=== PATIENT | female | born 1995 | race African-American/Black ===

== ENCOUNTER 2020-03-22 15:30 | Emergency (ER) | payer SELFPAY ==
[2020-03-22 15:44] VITALS: BP 132/73; PULSE 79; RESP 16; TEMP 36.7; O2SAT 99
--- NOTE | 2020-03-22 15:44 | ED.GENADULT ---
HPI - General Adult General Chief complaint: Unspecified Stated complaint: pos discharge Time Seen by Provider: 03/22/20 15:45 Source: patient and RN notes reviewed Mode of arrival: ambulatory Limitations: no limitations History of Present Illness HPI narrative: This is a 24 years old female presented office for evaluation of vaginal discharge. Stated she had a bikini wax yesterday and developed symptoms the following night. Symptoms include foul white thick odor discharge, with vaginal irritation/slight itchy/pain when she pees or shower.Admits to history of yeast infection. Denies vaginal pain if she does not touch her private part. She does not douche. Denies concerns for STD. She is otherwise feeling well. Related Data Allergies Allergy/AdvReac Type Severity Reaction Status Date / Time No Known Allergies Allergy Verified 03/22/20 15:37 Review of Systems Review of Systems: Narrative: CONSTITUTIONAL: Denies fever or feeling ill. ENT: Denies congestion, sore throat CARDIOVASCULAR: Denies chest pain RESPIRATORY: Denies dyspnea GASTROINTESTINAL: Denies abdominal pain, nausea, vomiting GENITOURINARY: Denies urinary symptoms. SKIN: Denies rash MUSCULOSKELETAL: Denies acute back pain NEUROLOGIC: Denies lightheaded PMFSH Comments At time of signature, I agree with nursing past medical, surgical, social and family history. There is no relevant family history pertinent to the presenting complaint. Exam Narrative: Exam Narrative: GENERAL: This is a well-nourished, well-developed patient, in no apparent distress. CARDIOVASCULAR: Regular rate and rhythm without murmurs, gallops, or rubs. RESPIRATORY: Clear to auscultation. Breath sounds equal bilaterally. No wheezes, rales, or rhonchi. GASTROINTESTINAL: Abdomen soft, non-tender, nondistended. Bowel sounds are active. No guarding. : external vaginal appears normal without obvious lesion, erythema or edematou/tenderness to palpation. Exam substation supervisor by nurse Gilmore. NEURO: awake, alert, and oriented to person, place and time. There were no obvious focal neurologic abnormalities. Steady gait [place] Coma Scale Eye Opening: Spontaneous 4 [place] Coma Scale Motor: Obeys Commands 6 [place] Coma Scale Verbal: Oriented 5 Course Vital Signs Vital signs: Vital Signs Temperature 98.0 F 03/22/20 15:44 Pulse Rate 79 03/22/20 15:44 Respiratory Rate 16 03/22/20 15:44 Blood Pressure 132/73 03/22/20 15:44 Pulse Oximetry 99 03/22/20 15:44 Temperature 98.0 F 03/22/20 15:44 Pulse Rate 79 03/22/20 15:44 Respiratory Rate 16 03/22/20 15:44 Blood Pressure 132/73 03/22/20 15:44 Pulse Oximetry 99 03/22/20 15:44 Medical Decision Making MDM Narrative Medical decision making narrative: Discharge instructions reviewed with patient, as well as provided in writing per nursing staff. The instructions also include specific and strict return/GO TO THE ER as well as f/u information. All questions have been answered, and the patient deny any further questions with discharge and discharge plan. Differential Diagnosis Differential Diagnosis: bacterial vaginosis, candidiasis, vaginitis, STD, syphilis, herpes Vital Signs Vital Signs: Vital Signs Temperature 98.0 F 03/22/20 15:44 Pulse Rate 79 03/22/20 15:44 Respiratory Rate 16 03/22/20 15:44 Blood Pressure 132/73 03/22/20 15:44 Pulse Oximetry 99 03/22/20 15:44 Temperature 98.0 F 03/22/20 15:44 Pulse Rate 79 03/22/20 15:44 Respiratory Rate 16 03/22/20 15:44 Blood Pressure 132/73 03/22/20 15:44 Pulse Oximetry 99 03/22/20 15:44 Critical Care Time Critical Care Time Critical Care Time: No Discharge Plan Discharge Clinical Impression: Vaginal discharge Vaginitis Qualifiers: Chronicity: acute Qualified Code(s): N76.0 - Acute vaginitis Patient Disposition: Home, Self-Care Condition: Stable Instructions: Yeast Infection (ED) Additional Instruction
== END 2020-03-22 16:01 | disposition home or self-care (01) ==
PROVIDERS: Emergency Provider Nurse Practitioner
DX: N76.0 Acute vaginitis (principal)
CPT/HCPCS: 99203; G0463

== ENCOUNTER 2020-07-16 16:31 | Emergency (ER) | payer BC, SELFPAY ==
--- NOTE | 2020-07-16 16:40 | ED.GENADULT ---
HPI - General Adult General Chief complaint: Urogenital-Female Stated complaint: Std testing Time Seen by Provider: 07/16/20 16:40 Source: patient Mode of arrival: ambulatory Limitations: no limitations History of Present Illness HPI narrative: 25-year-old female patient [facility] with complaints of vaginal discharge for the past 2 days. Patient states last menstrual. Was in early May. Patient states that she is sexually active with one partner but does not always use protection. Patient states that the vaginal discharge has had an odor to it but denies any itching to the area. Denies any pain with urination, low back pain, fever, body aches or chills. Related Data Allergies Allergy/AdvReac Type Severity Reaction Status Date / Time No Known Allergies Allergy Verified 03/22/20 15:37 Review of Systems Review of Systems: Narrative: CONSTITUTIONAL: Denies fever, chills, or sweats. EYES: Denies visual changes, redness, or discharge. ENT: Denies rhinorrhea, congestion, sore throat, or otalgia. CARDIOVASCULAR: Denies chest pain, palpitations, or edema. RESPIRATORY: Denies cough or dyspnea. GASTROINTESTINAL: Denies abdominal pain, nausea, vomiting, or diarrhea. GENITOURINARY: Denies dysuria or hematuria. Positive vaginal discharge SKIN: Denies rash or itching. MUSCULOSKELETAL: Denies back pain, joint pain, or myalgia. NEUROLOGIC: Denies headache, numbness, or weakness. PSYCHIATRIC: Denies anxiety or depression. PMFSH Comments At the time of my signature I agree with nursing past medical history, surgical, social, and family history. There is no relevant family history pertinent to the presenting complaint. Exam Narrative: Exam Narrative: GENERAL: Well-appearing, well-nourished, and in no acute distress. HEAD: Normocephalic, atraumatic. EYES: PERRLA and EOMI. ENT: Nares clear, no rhinorrhea or epistaxis. Mucous membranes moist. NECK: Supple. No lymphadenopathy CHEST: Clear to auscultation. No respiratory distress. HEART: Regular rate and rhythm. No murmur heard. Normal peripheral pulses. ABDOMEN: Soft, nontender, nondistended, normal active bowel sounds. No CVA tenderness on percussion : Normal external female genitalia. OS is closed. No adnexal fullness or TTP. No CVA tenderness to percussion. Patient does have some milky white discharge noted on exam. RS appears normal and closed. EXTREMITIES: Normal range of motion. No edema. SKIN: Warm, dry, no rash. NEURO: No focal deficits. Alert and oriented x3. Course Vital Signs Vital signs: Vital Signs Temperature 36.8 C 07/16/20 16:45 Pulse Rate 96 07/16/20 16:45 Respiratory Rate 16 07/16/20 16:45 Blood Pressure 135/73 07/16/20 16:45 Pulse Oximetry 100 07/16/20 16:45 Temperature 36.8 C 07/16/20 16:45 Pulse Rate 96 07/16/20 16:45 Respiratory Rate 16 07/16/20 16:45 Blood Pressure 135/73 07/16/20 16:45 Pulse Oximetry 100 07/16/20 16:45 Vital signs reviewed. Medical Decision Making Differential Diagnosis Differential Diagnosis: Differential diagnosis: Gonorrhea, chlamydia, Trichomonas, bacterial vaginosis, herpes, HIV, yeast infection, urinary tract infection. Uncomplicated lower UTI, uncomplicated UTI, pyelonephritis Discussed with patient that her test did come back positive. Discussed with her that based on this information I would like to go ahead and test her for gonorrhea, chlamydia and trichomonas as well as go ahead and treat her today for gonorrhea and chlamydia. Patient states that this would make her fourth . Patient has 2 living children at home and has had 1 previous elective . Patient is tearful about the news. Discussed with patient and asked her if she had an CLINICAL CYTOGENETICIST to follow-up with. Patient states that she does. Discussed with her that she will need to follow-up with her CLINICAL CYTOGENETICIST for further evaluation of things such as bacterial vaginosis and other STDs especially if her symptom
[2020-07-16 16:45] VITALS: BP 135/73; PULSE 96; RESP 16; TEMP 36.8; O2SAT 100
[2020-07-16] MEDS: cefTRIAXone 250 MG VIAL IM (17:56)
[2020-07-16] MEDS: AZITHROMYCIN 250 MG TABLET 500 MG PO (17:56)
--- NOTE | 2020-07-16 18:01 | PC.NURSE ---
was given 1000mg azithromycin po vorb unable to scan. initially ordered as 500mg po. 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
--- NOTE | 2020-07-16 18:24 | PC.NURSE ---
gc/chlam swab sent. urine cx sent. trich urine sent.
== END 2020-07-16 18:20 | disposition home or self-care (01) ==
PROVIDERS: Emergency Provider Nurse Practitioner Family
DX: Z20.2 Contact with and (suspected) exposure to infections with a predominantly sexual mode of transmission (principal); Z32.01 Encounter for pregnancy test, result positive; Z3A.01 Less than 8 weeks gestation of pregnancy
CPT/HCPCS: 81003; 81025; 87086; 87491; 87591; 87661; 96372; 99214; A9270; G0463; J0696

== ENCOUNTER 2021-01-20 00:02 | Observation (INO) | payer OTHER, SELFPAY ==
--- NOTE | 2021-01-20 00:02 | OBADM ---
This patient, Jessika Keenan, admitted to the OB room Labor/Delivery/Recovery 106 for observation. Patient/family oriented to hospital policies and general routines including ID bracelet, bed and alarms, visiting hours, pain management, procedures, bathroom and other care routines, personal items, smoking policy, room service/diet, and visiting hours. Patient/Family are encouraged to report perceived risks to care and to ask questions if they do not understand what they are told or what they should do.
[2021-01-20 00:16] VITALS: BP 113/81; PULSE 82; TEMP 36.7
[2021-01-20 00:31] VITALS: BP 125/77; PULSE 84
[2021-01-20 00:46] VITALS: BP 116/63; PULSE 84
[2021-01-20 00:56] VITALS: BMI 43.9
[2021-01-20] MEDS: HYDROcodone/acetaminophen (*CRX) 5-325 MG TABLET 1 TAB PO (00:57)
[2021-01-20] MEDS: FAMOTIDINE 20 MG TABLET PO (00:57)
[2021-01-20 00:59] LABS: Basophils Percent Auto 0.2 % (0.2-1.2); Eosinophils Absolute Auto 0.3 K/mm3 (0-0.3); Eosinophils Percent Auto 2.2 % (0-4.4); Hematocrit 32.9 % (37.0-47.0); Hemoglobin 10.9 g/dL (12.0-15.0); Immature Granulocyte Absolute 0.05 K/mm3 (0.00-0.031); Immature Granulocyte Percent A 0.4 % (0-0.5); Lymphocytes Absolute Auto 1.93 K/mm3 (0.9-3.2); Lymphocytes Percent Auto 15.7 % (18.3-44.2); Mean Corpuscular HGB Conc 33.1 g/dl (32-36); Mean Corpuscular Hemoglobin 29.5 pg (26-34); Mean Corpuscular Volume 88.9 fl (80-100); Mean Platelet Volume 10.5 fl (7.4-10.4); Monocytes Absolute Auto 1.2 K/mm3 (0.1-0.6); Neutrophils Absolute Auto 8.8 K/mm3 (1.3-6.7); Neutrophils Percent Auto 71.5 % (45.5-73.1); Platelet Count Result 212 k/mm3 (150-375); Red Cell Distribution Width 12.9 % (11.5-14.5); White Blood Count 12.3 K/mm3 (4.5-10.0)
[2021-01-20 01:01] VITALS: BP 114/68; PULSE 81
[2021-01-20 01:15] LABS: Alanine Aminotransferase 11 U/L (4-35); Albumin Level 3.9 g/dL (3.5-5.1); Alkaline Phosphatase 89 U/L (38-126); Anion Gap 5 mmol/L (8-16); Aspartate Amino Transferase 21 U/L (14-36); Bilirubin,Total 0.3 mg/dL (0.2-1.3); Blood Urea Nitrogen 9 mg/dL (7-17); Calcium 9.1 mg/dL (8.4-10.2); Carbon Dioxide 25 mmol/L (22-30); Chloride 106 mmol/L (98-107); Estimated CRCL calculation 154 ml/min; Estimated Glomerular Filt Rate > 60; Glucose 99 mg/dL (65-105); Lipase 111 U/L (23-300); Potassium 4.3 mmol/L (3.4-5.0); Sodium 136 mmol/L (137-145)
[2021-01-20 01:16] VITALS: BP 116/65; PULSE 81
[2021-01-20 01:31] VITALS: BP 116/60; PULSE 87
--- NOTE | 2021-02-01 08:54 | PM.OBTRLD ---
OB - Triage/Final Diagnosis Visit Information Comments/Additional reasons for admission: I have assessed the risk for this patient, Jessika Keenan, and determined that she would benefit from observation care. Evaluation Laboratory results: Laboratory Tests 01/20/21 01/20/21 00:50 00:50 WBC 12.3 H RBC 3.70 L Hgb 10.9 L Hct 32.9 L MCV 88.9 MCH 29.5 MCHC 33.1 RDW 12.9 Plt Count 212 MPV 10.5 H Immature Gran % (Auto) 0.4 Neut % (Auto) 71.5 Lymph % (Auto) 15.7 L [place] % (Auto) 10.0 H Eos % (Auto) 2.2 Baso % (Auto) 0.2 Lymph # (Auto) 1.93 [place] # (Auto) 1.2 H Eos # (Auto) 0.3 Baso # (Auto) 0.0 Abs Immat Gran (auto) 0.05 H Absolute Neuts (auto) 8.8 H Absolute Nucleated RBC 0.0 Nucleated RBC % 0.0 Sodium 136 L Potassium 4.3 Chloride 106 Carbon Dioxide 25 Anion Gap 5 L BUN 9 Creatinine 0.60 L Estim Creat Clear Calc 154 Estimated GFR > 60 Glucose 99 Calcium 9.1 Total Bilirubin 0.3 AST 21 ALT 11 Alkaline Phosphatase 89 Total Protein 7.0 Albumin 3.9 Lipase 111 Final Diagnosis (1) Abdominal pain during in third trimester: Code(s): O26.893 - Other specified related conditions, third trimester; R10.9 - Unspecified abdominal pain Status: Acute
== END 2021-01-20 02:02 | disposition home or self-care (01) ==
PROVIDERS: Admitting Provider Obstetrics & Gynecology; Visit Provider Obstetrics & Gynecology
DX: O26.893 Other specified pregnancy related conditions, third trimester (principal); R10.9 Unspecified abdominal pain; Z3A.31 31 weeks gestation of pregnancy
CPT/HCPCS: 36415; 80053; 83690; 85025; A9270; G0378; G0379

== ENCOUNTER 2021-08-15 08:53 | Emergency (ER) | payer OTHER, SELFPAY ==
--- NOTE | 2021-08-15 09:08 | ED.GENADULT ---
HPI - General Adult General Chief complaint: Urogenital-Female Stated complaint: ? Bladder Infection Time Seen by Provider: 08/15/21 08:59 History of Present Illness HPI narrative: Patient is a 26-year-old female otherwise healthy who comes to the ED today with concerns for possible bladder infection. Patient notes that recently she feels like she is not emptying her bladder completely when she urinates. She also notes a strong smell. She otherwise denies any dysuria, vaginal discharge, abdominal pain, back pain, fevers or any other symptoms. She is requesting be tested for STDs although she denies any known exposure. Admits to previous history of similar symptoms due to bladder infection. Denies any possibility of . Related Data Allergies Allergy/AdvReac Type Severity Reaction Status Date / Time No Known Allergies Allergy Verified 03/22/20 15:37 Review of Systems Constitutional: Constitutional: Reports as per HPI, Denies fever(s), Denies night sweats and Denies weakness Cardiovascular: Cardiovascular: Denies chest pain, Denies edema, Denies leg edema, Denies dyspnea and Denies orthopnea Respiratory: Respiratory: Denies cough and Denies dyspnea Gastrointestinal: Gastrointestinal: Denies abdominal pain, Denies constipation, Denies diarrhea, Denies nausea and Denies vomiting Genitourinary: Genitourinary: Reports as per HPI Musculoskeletal: Musculoskeletal: Denies abnormal gait, Denies back pain, Denies numbness and Denies tingling Neurologic: Denies Abnormal speech present, Denies abnormal gait, Denies numbness, Denies tingling and Denies weakness Psychiatric: Psychiatric: Denies homicidal ideation and Denies suicidal ideation Exam Const: General: cooperative, healthy appearing, comfortable, no acute distress, well developed, alert, awake and Physically active Orientation/consciousness: patient oriented x3 HENMT: Head: normal to inspection, normocephalic and atraumatic Ears: external ears normal General nose exam: Normal external nose present Eyes: Pupils: Equal, round and reactive pupils present EOM: EOMs intact bilaterally Neck: Neck: normal visual inspection Chest: Chest palpation & inspection: normal inspection of the chest and no tenderness Resp: Effort & Inspection: normal respiratory effort and able to speak in complete sentences Auscultation: clear to auscultation bilaterally Cardio: Rate: regular rate Rhythm: regular rhythm GI: Inspection: normal to inspection GI Palp: No abdominal tenderness Other: No pain with deep palpation. No CVA tenderness. : General: Yes no CVA tenderness External Female Exam: normal external appearance Other: External vagina normal. There is some thick white discharge in the vaginal canal. Chaperoned by [employer] Back/Spine/Pelvis: Back: no CVA tenderness Skin: General skin exam: normal color and no rashes or lesions noted Lesions: no lesions Neuro: General: patient oriented x3, no focal motor deficits and CN's II-XI intact bilaterally Cranial nerves: Yes Equal, round and reactive pupils present Speech: No Abnormal speech present Extrem: General: normal to inspection and full ROM Psych: Appearance: grossly normal and well kempt Mental Status: mental status grossly normal Speech and movement: Normal speech and movement present Affect: normal affect Thought process: Normal thought process present Course Course Emergency Course: 12:37 Discussed with patient urinalysis and symptoms consistent with UTI. Craig test negative. Gonorrhea chlamydia test will take a few days to come back. Vital Signs Vital signs: Vital Signs Temperature 36.3 C L 08/15/21 09:34 Pulse Rate 86 08/15/21 09:34 Respiratory Rate 14 08/15/21 09:34 Blood Pressure 130/81 08/15/21 09:34 Pulse Oximetry 99 08/15/21 09:34 Temperature 36.3 C L 08/15/21 09:34 Pulse Rate 86 08/15/21 09:34 Respiratory Rate 14 08/15/21 09:34 Blood Pressure 130/81 08/15/21 09:34
[2021-08-15 09:34] VITALS: BP 130/81; PULSE 86; RESP 14; TEMP 36.3; O2SAT 99
[2021-08-15 09:52] LABS: Add Urine Microscopic? YES; Appearance Urine Clear (Clear); Bilirubin Urine Negative (Negative); Blood Urine 1+ (Negative); Color Urine Yellow (Yellow); Glucose Urine UA Negative (Negative); Ketones Urine Negative (Negative); Leukocyte Esterase Ur 2+ LEU/UL (Negative); Mucus Urine Few /lpf; Nitrate Urine Negative (Negative); Protein Urine Negative (Negative); Specific Grav Ur 1.027 (1.001-1.035); Squamous Epithelial Cell Urine Few /hpf (Few); Urobilinogen Urine Negative mg/dL (<2.0); WBC Urine >75 /hpf
[2021-08-15 12:54] VITALS: BP 126/76; PULSE 65; RESP 12; O2SAT 99
== END 2021-08-15 12:54 | disposition home or self-care (01) ==
PROVIDERS: Physician Assistant Medical; Emergency Provider Emergency Medicine
DX: N39.0 Urinary tract infection, site not specified (principal)
CPT/HCPCS: 81001; 81025; 87077; 87086; 87088; 87186; 87491; 87591; 87808; 99284